=== PATIENT | female | born 1955 | race Caucasian/White ===

== ENCOUNTER 2025-05-10 14:52 | Inpatient (IN) | payer MEDICARE ==
[2025-05-10] VITALS (7 sets, daily range): BP systolic 69–129; BP diastolic 52–66
[~2025-05-10] VITALS: Ht 162.6 cm; Wt 78.3 kg
[2025-05-10] MEDS ORDERED: SODIUM CHLORIDE 0.9% 1,000 ML IV ONE (15:15)
[2025-05-10 15:18] LABS: BASOPHILS 0.5 % (0.1-1.2); EOSINOPHILS 4.7 % (0.7-5.8); LYMPHOCYTES 37.7 % (19.3-51.7); MCH 28.7 PG (25.6-32.2); MCHC 34.8 g/dL (32.2-35.5); MCV 82.5 fL (79.4-94.8); MONOCYTES 5.5 % (4.7-12.5); NEUTROPHILS 51.3 % (34.0-71.1); RBC 4.85 M/uL (3.93-5.22)
[2025-05-10 15:35] LABS: ALT (SGPT) 21.0 U/L (14-59); AST (SGOT) 19.0 U/L (15-37); GLOMERULAR FILTRATION RATE,EST 72.0 mL/min (>60); PROTEIN, TOTAL 6.4 g/dL (6.4-8.2); UREA NITROGEN 19.0 mg/dL (7-18)
[2025-05-10] MEDS ORDERED: MORPHINE SULFATE 4 MG/ML VIAL IV ONE (16:00)
[2025-05-10] MEDS ORDERED: CIPROFLOXACIN/DEXTROSE 400 MG/200 ML PIGGYBACK IV ONE (17:45)
[2025-05-10] MEDS ORDERED: HYDROmorphone HCL 1 MG/ML SYR IV ONE (17:45)
[2025-05-10] MEDS ORDERED: PROCHLORPERAZINE EDISYLATE 10 MG/2 ML VIAL IV PRN (18:30)
[2025-05-10] MEDS ORDERED: HYDROmorphone HCL 1 MG/ML SYR IV PRN (18:30)
[2025-05-10] MEDS ORDERED: NEURONTIN300 MG PO (19:56)
--- NOTE | 2025-05-10 20:26 | NUR ---
WE ARE ADMITTING PT TO THE FLOOR AND DOING ASSESSMENT KEL DURANT RN CALLS DR. REA TO REPORT PT'S TEMPERATURE OF 93.3 RECTAL. PT GIVEN 10MG COMPAZINE AND 1MG DILAUDID FOR NAUSEA AND PAIN 10/[address] REA ORDERS PT BE MOVED TO CCU. MISSAEL ADAN AND I MOVED PT TO CCU AND REPORTED OFF TO MISSAEL ROBERTS.
[2025-05-10 20:40] LABS: BLOOD/HGB, URINE NEGATIVE (Negative); KETONE, URINE SMALL (Negative); LEUK ESTERASE, URINE NEGATIVE (negative); NITRITE, URINE NEGATIVE (negative)
--- NOTE | 2025-05-10 20:45 | NUR ---
PATIENT ARRIVED IN THE BED FROM [facility]. REPORT RECIEVED. PATIENT IS AAOX4. REPORTS PAIN 8/10; RECENTLY RECIEVED PRN DILAUDID AND COMPAZINE. PATIENT'S BP AND HR NORMAL. IV ABX INFUSING; IV SITE IN LEFT HAND WNL. BRYSON PLACED FOR TEMP MONTIORING. INITAL TEMP IS 91.F. BEAR HUGGER WARMING BLANKET APPLIED. PATIENT REPORTS NOT FEELING COLD BUT IS COOL TO TOUCH. OTHER VS ARE WNL. PATIENT ABLE TO PROVIDE HISTORY. FREINDS AT BEDSIDE.
[2025-05-10 20:54] LABS: AMPHETAMINES, URINE POSITIVE (NEGATIVE); BARBITURATES, URINE NEGATIVE (NEGATIVE); BENZODIAZEPINE, URINE NEGATIVE (NEGATIVE); CANNABINOID, URINE NEGATIVE (NEGATIVE); COCAINE, URINE NEGATIVE (NEGATIVE); ECSTASY, URINE NEGATIVE (NEGATIVE); FENTANYL, URINE POSITIVE (NEGATIVE); METHADONE, URINE NEGATIVE (NEGATIVE); OPIATES, URINE POSITIVE (NEGATIVE); OXYCODONE, URINE NEGATIVE (NEGATIVE); PHENCYCLIDINE, URINE NEGATIVE (NEGATIVE)
--- NOTE | 2025-05-10 21:30 | NUR ---
PATIENT REPORTS ONGOING CRAMPING AND WANTS TO GO TO THE BATHROOM. ASSITED PATIENT UP OUT OF BED. PATIENT STEADY ON HER FEET AND AMBULATES WITH CORD ASSIST ONLY. PATIENT SAT FOR A WHILE BUT DID NOT HAVE A BM. ASSISTED PATIENT BACK TO BED. BEAR HUGGER BACK IN PLACE.
--- NOTE | 2025-05-10 22:20 | NUR ---
PT CALL LIGHT ON, REQUESTING TO HAVE A BM. ASSISTED PT TO BSC SBA. UPON SITTING DOWN PT C/O FEELING "DIZZY". WITH IN A FEW SECONDS PT SLUMPED OVER ON TO LAP. PT QUICKLY SAT UP AND OPENED EYES. SR ON TELE IN THE 90'S. ASSISTED PT BACK TO BED AND CHECKED BP, 69/52 (58). ALEJANDRA CANAS AND DR. REA AT BEDSIDE. PT C/O FEELING DIZZY BUT ALERT AND RESPONDS TO QUESTIONS APPROPRIATELY.
[2025-05-10] MEDS ORDERED: LACTATED RINGER'S 1,000 ML IV SCH (22:45)
--- NOTE | 2025-05-10 22:45 | NUR ---
PATIENT RECEIVING BOLUS. MD REVIEWED PLAN OF CARE AND DISCUSSED LAB FINDINGS WITH PATIENT. PATIENT'S BP IMPROVED UPON RETURNING TO BED AND PATIENT REPORTS FEELING SLIGHTLY DIZZY BUT IS AAOX4. FRIENDS AT BEDSIDE. BEAR HUGGER IN PLACE. ENCOURAGED PATIENT TO REST IN THE BED; SHE IS FREQUENTLY TURNING SIDE TO SIDE AND TRYING TO GET COMFORTABLE.
[2025-05-11] VITALS (29 sets, daily range): BP systolic 66–127; BP diastolic 48–96
--- NOTE | 2025-05-11 00:30 | NUR ---
PATIENT REPORTS BACK PAIN AND ABD PAIN. STAFF HAS ASSISTED PATIENT IN REPOSITIONING MANY TIMES TO IMPROVE COMFORT. PATIENT PROVIDED PRN MEDS FOR PAIN AND MILD NAUSEA. PATIENT ASSISTED TO LAY ON HER SIDE AND PILLOWS PLACED FOR COMFORT. PATIENT VS STABLE. BRYSON TEMP IMPROVING; CURRENTLY 98.6 F. BEAR HUGGER WARMING BLANKET REMAINS IN PLACE. PATIENT TOLERAITNG ROOM AIR. IV FLUIDS PER ORDER. SITE WNL. CALL LIGHT IN REACH.
[2025-05-11] MEDS ORDERED: LACTATED RINGER'S 1,000 ML IV ONE ×5 (01:15→18:00)
--- NOTE | 2025-05-11 01:40 | NUR ---
NOTIFIED DR. REA OF PATIENT'S HYPOTENSION AND TACHYCARDIA. DISCUSSION OF FLUID BALANCE WAS HAD. PATIENT'S IV FLUIDS INCREASED. HOLDING PAIN MEDS FOR NOW. PLAN TO BOLUS IF PATIENT'S BP DOES NOT IMPROVE WITHIN AN HOUR. CURRENT MAP > 60. PATIENT DENIES FEELING DIZZY OR LIGHTHEADED AND IS AAOX4.
--- NOTE | 2025-05-11 02:28 | NUR ---
patient sitting on bedpan. patient wakes and answers orientation questions but is frequently drowsy and restless at random intervals. patient will move around in bed impulsively without any concern for lines of tubes; including iv tubing and johnston cath. attempts made to reduce cords and organize to reduce patient's risk of pulling one. this behavior does not appear intenstional. hr is elevated at 115-120; sinus tach. BP has improved to systolics in the high 90's and maps >65. see vital sign trends. johnston temp is 100.0 f without bear hugger in place.
--- NOTE | 2025-05-11 02:40 | NUR ---
PATIENT OFF BEDPAN. NO BM. PATIENT IS DROWSY BUT FOLLOWS COMMANDS. VS STABLE. IV FLUIDS PER ORDER. SITE WNL.
--- NOTE | 2025-05-11 04:00 | NUR ---
PATIENT SET OFF BED ALARM TRYING TO SIT TO EDGE OF BED. PATIENT DISORIENTED UPON WAKING. EASILY REORIENTED. FOLLOWS INSTRUCTIONS TO GET BACK INTO BED. REPORTS FEELING WELL. BP CUFF REPOSITIONED. CORDS UNTANGLED. PATIENT IS RESTLESS WHILE SLEEPING; ROLLING BACK AND FORTH FREQUENTLY. HR REMAINS ELEVATED EVEN AT REST; 110-120'S SINUS TACH. BP WNL. BRYSON TEMP 100.6 F IV FLUIDS CONTINUE PER ORDER; SITE WNL.
--- NOTE | 2025-05-11 05:04 | NUR ---
UPDATE PROVIDED TO PATIENT'S SISTER RUTH WITH VERBAL CONSENT FROM PATIENT.
[2025-05-11 05:20] LABS: BASOPHILS 0.2 % (0.1-1.2); EOSINOPHILS 0 % (0.7-5.8); LYMPHOCYTES 2.7 % (19.3-51.7); MCH 28.6 PG (25.6-32.2); MCHC 34.0 g/dL (32.2-35.5); MCV 84.3 fL (79.4-94.8); MONOCYTES 5.8 % (4.7-12.5); NEUTROPHILS 90.9 % (34.0-71.1); RBC 5.62 M/uL (3.93-5.22)
[2025-05-11 05:39] LABS: ALT (SGPT) 20.0 U/L (14-59); AST (SGOT) 19.0 U/L (15-37); GLOMERULAR FILTRATION RATE,EST 52.0 mL/min (>60); PHOSPHORUS, INORGANIC 5.2 mg/dL (2.5-4.9); PROTEIN, TOTAL 5.5 g/dL (6.4-8.2); UREA NITROGEN 22.0 mg/dL (7-18)
[2025-05-11] MEDS ORDERED: CIPROFLOXACIN/DEXTROSE 400 MG/200 ML PIGGYBACK IV SCH (06:00)
--- NOTE | 2025-05-11 07:30 | NUR ---
REPORT RECEIVED FROM ALEJANDRA CANAS. PT IS RESTING IN BED WITH EYES CLOSED, RESP EVEN AND UNLABORED, RR 24, PT ON /, HR 90'S SINUS RHYTHM. DAUGHTER IS IN ROOM.
--- NOTE | 2025-05-11 08:33 | NUR ---
AM ASSESSMENT COMPLETE - PT RESTING IN BED WITH EYES CLOSED BUT ALERT AND RESPONDS TO QUESTIONS APPROPRIATLY. FIDGETY IN BED AT TIMES. STATES PAIN IS TRANSIENT CRAMPING ACROSS LOWER ABD. DENIES NAUSEA OR CHEST PAIN OR SOB. SWAB PROVIDED PT STATES SHE IS THIRSTY - REVIEWED CURRENT PLAN OF CARE AND NPO STATUS. IV SITE PATENT X2, IVF AT 200ML/HR. TEMP BRYSON DRAINING CONC URINE, TEMP 99.6. SINUS TACH ON MONITOR 105. CALL LIGHT IN REACH.
--- NOTE | 2025-05-11 09:20 | NUR ---
PT USES CALL LIGHT TO STATE SHE IS UNCOMFORTABLE IN BED - ASSISTED WITH REPOSISTIONING WITH PILLOWS AND HEAT PACK FOR BACK PROVIDED. PT RESTLESS, FLOPPY IN BED AND DIFFICULT TO CONSOLE. STATES NAUSEA IS BETTER AFTER ZOFRAN. CONTINUES TO STATE THAT SHE NEEDS WATER, SWAB PROVIDED.
--- NOTE | 2025-05-11 10:04 | NUR ---
1 L BOLUS STARTED PER EMAR. PT COMPLAINING OF 7/10 PAIN, PRN ADMINISTERED SMALLER DOSE TO TITRATE UP. PT RESTLESS IN BED. BP 88/60, HR 103. URINE OUTPUT 40ML FOR LAST 3 HOURS. FRIENDS AT BEDSIDE UPDATED ON CURRENT STATUS AND PLAN OF CARE.
--- NOTE | 2025-05-11 11:24 | NUR ---
MD NOTIFIED OF REPEAT LACTIC AT 4.1, BP TRENDING DOWN. URINE OUTPUT LESS THAN QUANTITY SUFFICIENT PER HOUR. CORE TEMP 99.1, PT COOL TO TOUCH, WARM BLANKETS APPLIED. BOLUS CONTINUES TO INFUSE.
--- NOTE | 2025-05-11 11:54 | NUR ---
BRYSON CATH TUBING CHANGED TO UROMETER, OUTPUT REMAINS MINIMAL PER HOUR. AWARE. BOLUS COMPLETE.
[2025-05-11] MEDS ORDERED: PHARMACY RENAL DOSE ADJUSTMENT 1 DOSE MISC PO SCH (12:00)
--- NOTE | 2025-05-11 12:12 | NUR ---
MD AND SURGEON IN ROOM TO ROUND - PT AWAKE AND CONVERSING BUT SOME CONFUSION OR DIFFICULTY FOLLOWING CONVERSATION. FRIENDS AT BEDSIDE, ALL QUESTIONS ANSWERED.
--- NOTE | 2025-05-11 12:27 | NUR ---
SISTER RUTH UPDATED ON TELEPHONE REGARDING PT STATUS WITH PT PERMISSION. ALL QUESTIONS ANSWERED.
[2025-05-11] MEDS ORDERED: NOREPINEPHRINE BITARTRATE 250 ML IV SCH (12:30)
--- NOTE | 2025-05-11 13:08 | NUR ---
BACK FROM CT - PT RESTING QUIETLY IN BED.
--- NOTE | 2025-05-11 14:23 | NUR ---
PT RESTING IN BED WITH EYES CLOSED FLAT ON BACK - STATES PAIN IS STILL MANAGABLE LEVEL, ATTEMPTS TO REPOSISTION BUT NOT COMFORTABLE. MD AT BEDSIDE, AWARE OF INCREASE IN URINE OUT PUT LAST HOUR. SECOND 1L BOLUS HALF THROUGH. BP RESPONSIVE.
[2025-05-11] MEDS ORDERED: SEVOFLURANE 250 ML BTL INH ONE (14:28)
--- NOTE | 2025-05-11 14:49 | NUR ---
PT MORE ALERT NOW, SITTING UP IN BED - REPORTS DIZZINESS WITH THIS. CONVERSATION MORE CLEAR THAN PRIOR. SECOND BOLUS COMPLETE.
--- NOTE | 2025-05-11 15:16 | NUR ---
LACTIC DRAWN FROM MIDLINE WITHOUT DIFFICULTY. PT INCREASINGLY RESTLESS IN BED COMPLAINING OF ABDOMINAL PAIN. BP 90/61 AT THIS TIME, PREVIOUS DOSES OF DILAUDID NOTED TO HAVE HYPOTENSIVE EFFECT. HOLDING AT THIS TIME.
--- NOTE | 2025-05-11 15:47 | NUR ---
NOTIFIED OF REPEAT LACTIC AT 4.6. PTS PAIN HAS INCREAED IN LOWER ABD, TRANSIENT CRAMPING. BP LOWERING WITH INCREASED RR AND HR NOW 110.
[2025-05-11] MEDS ORDERED: BETAMETHASONE D15 G2 TOP (16:10)
[2025-05-11] MEDS ORDERED: ZOLPIDEM TARTRAT5 MG PO (16:15)
[2025-05-11] MEDS ORDERED: ZEPBOUND12.5 MG/0. SUB-Q (16:16)
[2025-05-11] MEDS ORDERED: ALPRAZOLAM0.5 MG PO (16:16)
[2025-05-11] MEDS ORDERED: ZOLMITRIPTAN5 MG PO (16:20)
[2025-05-11] MEDS ORDERED: PHENTERMINE H37.5 M1 PO (16:21)
[2025-05-11 16:22] LABS: BASOPHILS 0.4 % (0.1-1.2); EOSINOPHILS 0.5 % (0.7-5.8); LYMPHOCYTES 6.9 % (19.3-51.7); MCH 28.7 PG (25.6-32.2); MCHC 33.9 g/dL (32.2-35.5); MCV 84.7 fL (79.4-94.8); MONOCYTES 4.8 % (4.7-12.5); NEUTROPHILS 87.0 % (34.0-71.1); RBC 5.68 M/uL (3.93-5.22)
[2025-05-11 16:34] LABS: INR 1.44 (0.80-1.30); PROTIME 16.6 Sec (11.2-14.2)
[2025-05-11] MEDS ORDERED: fentaNYL citrate 100 MCG/2 ML VIAL ONE (18:40)
[2025-05-11] MEDS ORDERED: MIDAZOLAM HCL 2 MG/2 ML VIAL ONE (18:40)
[2025-05-11] MEDS ORDERED: KETAMINE in NS 50 MG/5 ML SYR ONE (18:40)
[2025-05-11] MEDS ORDERED: MAGNESIUM SULFATE 1 GM/2 ML VIAL ONE ×2 (18:41→20:59)
[2025-05-11] MEDS ORDERED: DEXAMETHASONE SOD PHOS 4 MG/ML VIAL ONE ×2 (18:41→22:39)
[2025-05-11] MEDS ORDERED: ROCURONIUM BROMIDE 50 MG/5 ML SYR ONE ×2 (18:41→20:00)
[2025-05-11] MEDS ORDERED: LIDOCAINE HCL 2% 5 ML SDV ONE ×2 (18:41→20:59)
[2025-05-11] MEDS ORDERED: SODIUM CHLORIDE 0.9% 40 ML IV ONE ×2 (18:42→20:58)
[2025-05-11] MEDS ORDERED: ACETAMINOPHEN 1,000 MG/100 ML VIAL ONE (18:42)
[2025-05-11] MEDS ORDERED: PHENYLEPHRINE HCL 10 MG/ML VIAL ONE (19:44)
[2025-05-11] MEDS ORDERED: SODIUM CHLORIDE 0.9% 20 ML IV ONE (19:50)
[2025-05-11] MEDS ORDERED: VASOPRESSIN 20 UNITS/ML VIAL ONE (19:50)
--- NOTE | 2025-05-11 20:51 | NUR ---
PHONE CALL FROM LAB STATING PT GRAM STAIN CAME BACK NEGATIVE FOR ORGANISMS BUT HAS MODERATE WBC. PRIMARY RN NOTIFIED.
[2025-05-11] MEDS ORDERED: ALBUMIN HUMAN 25% 100 ML BTL ONE (21:22)
[2025-05-11] MEDS ORDERED: ALBUMIN HUMAN 25% 100 ML BTL IV ONE (21:30)
[2025-05-11] MEDS ORDERED: SODIUM CHLORIDE 0.9% 60 ML IV ONE (22:39)
[2025-05-11] MEDS ORDERED: Ropivacaine HCl 0.5% 30 ML VIAL ONE (22:39)
[2025-05-11] MEDS ORDERED: KETOROLAC TROMETHAMINE 30 MG/ML VIAL IV PRN (22:45)
[2025-05-11] MEDS ORDERED: fentaNYL citrate 50 MCG/ML SDV IV PRN (22:45)
[2025-05-11] MEDS ORDERED: NALOXONE HCL 0.4 MG SYR IV PRN (22:45)
[2025-05-11] MEDS ORDERED: IBLOOD GLUCOSE TEST STRIP 1 EA TEST VI PRN (22:45)
[2025-05-11] MEDS ORDERED: SUGAMMADEX SODIUM 200 MG/2 ML ML ONE (22:50)
[2025-05-12] VITALS (24 sets, daily range): BP systolic 99–141; BP diastolic 51–88
[2025-05-12] MEDS ORDERED: KETOROLAC TROMETHAMINE 30 MG/ML VIAL IV PRN (01:00)
[2025-05-12] MEDS ORDERED: ACETAMINOPHEN 1,000 MG/100 ML VIAL IV PRN (01:00)
--- NOTE | 2025-05-12 01:00 | NUR ---
TOOK FROM ALEJANDRA CANAS REPORT RECEIVED ALL QUESTIONS ANSWERED. PT SLEEPING, BUT WILL OPEN EYES AND LOOK ABOUT THE ROOM. EXPLAINED WHERE AND WHAT HAD HAPPENED AND THEN SHE GOES BACK TO SLEEP. NERI LEON REMAINS INPLACE DUE TO BRYSON TEMP 95.6 TO 95.8. WARM BLANKETS AND COVERS ARE ALSO COVERING PT. SCD'S INPLACE AND BRYSON DRAINING RYLAN IN COLOR URINE.
[2025-05-12 01:09] LABS: MCH 29.0 PG (25.6-32.2); MCHC 34.3 g/dL (32.2-35.5); MCV 84.5 fL (79.4-94.8); RBC 4.38 M/uL (3.93-5.22)
[2025-05-12] MEDS ORDERED: NOREPINEPHRINE BITARTRATE 250 ML IV SCH (01:15)
[2025-05-12 01:26] LABS: ALT (SGPT) 13.0 U/L (14-59); AST (SGOT) 13.0 U/L (15-37); GLOMERULAR FILTRATION RATE,EST 53.0 mL/min (>60); PROTEIN, TOTAL 4.0 g/dL (6.4-8.2); UREA NITROGEN 27.0 mg/dL (7-18)
[2025-05-12 01:46] LABS: BANDS, MANUAL DIFF 20; LYMPHOCYTES, MANUAL DIFF 10; MONOCYTES, MANUAL DIFF 4; NEUTROPHILS, MANUAL DIFF 66
--- NOTE | 2025-05-12 03:00 | NUR ---
PT AWKENS WHEN SPOKEN TO, DOES NOT TRY TO TALK LOOKS ABOUT THE ROOM AND GOES BACK TO SLEEP. STATED EARLY BEAR HUNGER, WARM BLANKETS.
--- NOTE | 2025-05-12 03:11 | NUR ---
G-TUBE PLACE TO BRYSON LEG BAG, DRAINING CLEAR IN COLOR AT THIS TIME, PT MEDICATED FOR PAIN 0.5 DILADIUD. SHE WAS ASKING QUESTION AND WANTING ME TO CALL HER SISTER, BUT EXPLAINED THAT IT WAS 0300 IN THE MORNING AND THAT WOULD BE VERY EARLY TO BE CALLING PEOPLE. SHE RELAXED AND THEN SHE WANTED TO SEE WHAT HER DRAINS AND WHAT SHE LOOKED LIKE. SO WITH A MIRROR LIQUID HYDROGEN PLANT OPERATOR SHOWED HER STOMACH. PT ALSO WANTED THE OXY MASK OFF SO REMOVED IT AND SPO2 92% ON ROOM AIR.
[2025-05-12 05:30] LABS: BASOPHILS 0.3 % (0.1-1.2); EOSINOPHILS 0.9 % (0.7-5.8); LYMPHOCYTES 7.5 % (19.3-51.7); MCH 28.9 PG (25.6-32.2); MCHC 34.5 g/dL (32.2-35.5); MCV 83.7 fL (79.4-94.8); MONOCYTES 3.9 % (4.7-12.5); NEUTROPHILS 86.9 % (34.0-71.1); RBC 4.54 M/uL (3.93-5.22)
--- NOTE | 2025-05-12 05:31 | NUR ---
obtained lab sample wasted 5 and sent 10mls. talked with sister this am gave updates. But sister Priti would like Dr to call when he is into see PT. Pt is awake and warm at this time temp 98.6 bear huger removed, pt wants to get up into a wc at this time. Explained to her that she is still waking up from surgery and it is not safe for her to be up yet. repositioned in bed at this time.
[2025-05-12 05:53] LABS: ALT (SGPT) 15.0 U/L (14-59); AST (SGOT) 14.0 U/L (15-37); GLOMERULAR FILTRATION RATE,EST 64.0 mL/min (>60); PROTEIN, TOTAL 4.4 g/dL (6.4-8.2); UREA NITROGEN 26.0 mg/dL (7-18)
[2025-05-12] MEDS ORDERED: MEROPENEM 1,000 MG in SODIUM CHLORIDE 0.9% 100 ML IV SCH (06:00)
--- NOTE | 2025-05-12 07:04 | NUR ---
PT ANGERY AND WANTS HER CELL PHONE, WANTS US TO CALL THEM NOW. STAFF CALLED THE NUMBER ON THE BOARD.
--- NOTE | 2025-05-12 07:15 | NUR ---
PT CONTIOUES TO MAGNO AT STAFF AND DEMANDING US TO GIVE HER HER PERSONAL CELL PHONE. REDIRECTED THAT STAFF DID NOT HAVE HER PHONE. CALLED NUMBERS ON THE BOARD, BUT PT CONTIOUES TO MAGNO AT STAFF. SHE PULLED OFF HER GORWN, AND SPO2 MONITOR OFF. TRYED TO REDIRECE HER, BUT SHE DID NOT RESPONED TO STORAGE BATTERY TESTER. FAMILY AND FREINDS CALLED AND TALKED WITH PT AND SHE CONTIOUED TO MAGNO THAT SHE WANTS OUT OF HERE. JUST LET ME GET OUT OF HER AND GIVE ME A DRINK OF WATER.
--- NOTE | 2025-05-12 07:45 | NUR ---
PT LAYING IN BED AWAKE AND ORIENTED SLAMMING HANDS AND CALL LIGHT ON BED YELLING OUT DEMANDS FOR WATER AND HER CELL PHONE. RN IN ROOM ATTEMPTING TO EDUCATE PT ON NPO STATUS, POST OP TEACHING. PT UNINTERESTED AND CONTINUES TO DEMAND TO LEAVE AND ATTEMPTING TO EXIT BED. PT HAS TAKEN GOWN OFF AND IS NAKED IN BED, STATES SHE WILL PUT HER GOWN BACK ON WHEN SHE CAN HAVE WATER. BED ALARM ON, CURTAIN OPEN FOR DIRECT VISUALIZATION AT RN STATION FOR SAFETY.
--- NOTE | 2025-05-12 08:44 | NUR ---
DR. DEL CASTILLO IN ROOM ROUNDING - PT AND FRIENDS UPDATED ON POST OP STATUS - ALL QUESTIONS ANSWERED. PT PROVIDED ICE CHIPS PER VERBAL FROM DR. DEL CASTILLO.
--- NOTE | 2025-05-12 09:15 | NUR ---
ALERT AND ORIENTED IN BED, FRIENDS IN ROOM. PATIENT STATES SHE LIVES IN [place], DEMOGRAPHICS VERIFIED WITH PATIENT. WOULD LIKE FIRST SHIPMENT OF OSTOMY SUPPLIES TO BE SENT TO HER FRIENDS' HOUSE AT [address] [place], [id number]. CURRENTLY, SHE IS PLANNING TO RETURN TO [place] WITH FRIENDS WHILE SHE RECOVERS BEFORE SHE FLIES BACK TO HER HOME IN [place]. HAS NO DME AT [place] AND IS ABLE TO DRIVE AT [place], NO FINANCIAL CONCERNS. ORDERS LEFT AT CCU NURSE'S STATION FOR OSTOMY SUPPLIES FOR DR. DEL CASTILLO TO COMPLETE.
--- NOTE | 2025-05-12 09:50 | NUR ---
SPEECH THERPAY IN ROOM FOR COGNITIVE EVAL.
--- NOTE | 2025-05-12 11:30 | NUR ---
UR CLINICAL REVIEW: 2 MN FOR VERSALUS-PER IT ANALYST MEETS INPT FOR COLITIS WITH NEED FOR IV PAIN MANAGEMENT, MONITORIN AND SURGICAL CONSULT. MEDICARE INPT 05/10/25 @ 1824 ORDER MATCHES REG NO AUTH REQUIRED PER MEDICARE GUIDELINES. DISCHARGE TO HOME WHEN STABLE
--- NOTE | 2025-05-12 12:03 | NUR ---
PT RESTING IN BED ON CELL PHONE - ROOM LIGHTS OFF PER PT REQUEST. /10 PAIN IN NECK AT CENTRAL LINE SITE AND LOWER BACK - PRN ADMINISTERED. PT STATES THE PICTURE ON THE WALL IS OF 2 WITCHES, PT REORIENTED.
[2025-05-12] MEDS ORDERED: VITAMIN B-121000 MCG PO (12:09)
[2025-05-12] MEDS ORDERED: MULTI VITAMIN1 EACH PO (12:09)
--- NOTE | 2025-05-12 12:09 | NUR ---
MED REC COMPLETE
--- NOTE | 2025-05-12 12:45 | NUR ---
PT RESTING IN BED WITH EYES CLOSED. APPEARS TO BE SLEEPING - NO DISTRESS NOTED. WATER AND APPLE JUICE AT BEDSIDE PER PT REQUEST. CALL LIGHT IN REACH.
--- NOTE | 2025-05-12 13:10 | NUR ---
05/12/25 1310 Carlyn Bennett PT TAKEN DIRECTLY TO CCU, NO PACU TIME
--- NOTE | 2025-05-12 13:10 | NUR ---
VISITED DURING SPIRITUAL CARE ROUNDS. PT APPEARED TO BE SLEEPING. DID NOT DISTURB. PROVIDED PRAYER.
--- NOTE | 2025-05-12 13:45 | NUR ---
PT RESTING IN BED WITH EYES CLOSED - EASILY AWAKES WITH VOICE. OSTOMY TISSUE RED AND WELL GRANULATED. G TUBE IN PLACE DRAINING CLEAR FLUID WITH SOME MUCOID SEDIMENT. VICTOR M PATENT WITH APPROPRIATE OUTPUT. PRN PAIN MEDICATION ADMINISTERED PER REQUEST AND ICE PACK PROVIDED FOR NECK. VS STABLE.
--- NOTE | 2025-05-12 14:39 | NUR ---
PT UP TO CHAIR WITH OT NEEDING 2 PA FOR LINE MANAGMENT. CALL LIGHT IN REACH.
--- NOTE | 2025-05-12 21:00 | NUR ---
pt awake back in bed and was c/o something wet. it was from her g-tube that had came unpluged from drainage bag. complete line change and retaped with pink tape at this time. Pt apologize for this am behaviors. Explained that she is good. filey contioues to drain QS urine and mable put out ss fluid. Clostomy has air bubble noted, no stool as of it. Completed all care so that pt can get some sleep.
[2025-05-13] VITALS (13 sets, daily range): BP systolic 119–145; BP diastolic 59–75
--- NOTE | 2025-05-13 00:43 | NUR ---
PT AWAKE AND OFFERED PAIN MEDICATION FOR ABD PAIN. PT ACCEPTED AND WAS MEDICATED WITH 0.5MG DILAUDID IVP. G-TUBE DRAINED AND VICTOR M AND CLOSTOMY DID NOT HAVE ANY DRAINAGE AT THIS TIME. PT WANT'S THE ROOM DARKER BUT UNABLE TO PROVIDE THIS EVEN WHEN ALL THE LIGHTS ARE OFF AND CURTINS CLOSED.
--- NOTE | 2025-05-13 01:33 | NUR ---
In with pt in response to call light. Pt requests to look through her "green bag" of personal belongings so she can find her deck of cards. She looked through it and discovered her cards were not in there, but commented that she is tired but can't sleep and she thinks it's the lighting outside her room that is keeping her awake. I brought the pt a quiet pack and assisted her with opening the sleep mask and ear plugs, which she used. Pt's iced water refreshed. Personal belongings and call light in reach. Bedside tables in reach. Pt denies further needs at this time.
--- NOTE | 2025-05-13 01:49 | NUR ---
In with pt in response to call light because she couldn't find her sleep mask (it was on her forehead). Pt reports her pain is a 10 out of 10 in her low back and a 5 in her abdomen. Advised pt that her next dose of dilaudid is due a little after 0200 hours and provided the pt with a hot pack that I placed on her low back after wrapping it in a towel. RN Susan notified and I will notify pt's primary RN when she returns from break. Call light in reach.
--- NOTE | 2025-05-13 02:00 | NUR ---
PT AWAKE AND C/O BACK AND ABD PAIN. MEDICATED WITH 0.5MG DILAUDID AND 30MG TORDAL.
[2025-05-13 05:43] LABS: BASOPHILS 0.3 % (0.1-1.2); EOSINOPHILS 0 % (0.7-5.8); LYMPHOCYTES 7.0 % (19.3-51.7); MCH 28.8 PG (25.6-32.2); MCHC 34.4 g/dL (32.2-35.5); MCV 83.8 fL (79.4-94.8); MONOCYTES 5.6 % (4.7-12.5); NEUTROPHILS 86.5 % (34.0-71.1); RBC 3.71 M/uL (3.93-5.22)
--- NOTE | 2025-05-13 05:58 | NUR ---
i&o's completed and pt medicated for pain. Pt has been very pleasent this shift. No outbust noted.
[2025-05-13 06:02] LABS: ALT (SGPT) 21.0 U/L (14-59); AST (SGOT) 27.0 U/L (15-37); GLOMERULAR FILTRATION RATE,EST 66.0 mL/min (>60); PROTEIN, TOTAL 4.6 g/dL (6.4-8.2); UREA NITROGEN 34.0 mg/dL (7-18)
--- NOTE | 2025-05-13 08:44 | NUR ---
PATIENT IS SITTING IN CHAIR WITH BLE ON FLOOR. PATIENT AMBULATED FROM BED TO CHAIR WITH FWW AND SBA. PATIENT DENIED SOB, DIZZINESS, OR FEELING LIGHTHEADED. THERE WAS A LEAK IN THE G-TUBE DRAINAGE, KAITY CANAS CHANGED THE TUBING. WIPE DOWN, GOWN AND LINEN CHANGE PROVIDED. PATIENT HAS TELEMETRY, VICTOR M TUBE, G TUBE AND CENTRAL LINE. LR INFUSING AT 100ML/HR. PATIENT DENIES FURTHER NEEDS.
--- NOTE | 2025-05-13 10:38 | NUR ---
DR. DEL CASTILLO IN ROOM TO SEE PATIENT AND DISCUSS PLAN OF CARE. PATIENT WILL LIKLEY TRANSFER TO MED/SURG TODAY.
--- NOTE | 2025-05-13 10:41 | NUR ---
PATIENT IS STILL PLANNING TO RETURN TO HOME WITH FRIENDS IN [place]. DISCUSSED OSTOMY SUPPLIES BEING SHIPPED TO HER FRIEND'S HOUSE WHILE SHE HEALS. INFORMED HER DME COMPANY INFORMATION WILL BE PLACED ON HER DISCHARGE INSTRUCTIONS. LIKELY WILL NEED HOME HEALTH NURSE TO ASSIST WITH OSTOMY EDUCATION AT DISCHARGE. WILL REVIEW HOME HEALTH AGENIES IN AREA OF FRIEND'S HOME.
--- NOTE | 2025-05-13 12:26 | NUR ---
PATIENT TRANSFERRED TO ROOM 112 WITHOUT TELEMETRY AND ALL PERSONAL BELONGINGS, WHICH INCLUDED HER BLACK PERSONAL PILL BOX (WHICH I TRIED TO LOCK IN THE CLEAR LOCK BOX IN THE ROOM THIS AM AND PATIENT WAS NOT HAPPY WITH THIS SHE STATED THEY WOULD BE TAKEN BY HER FRIENDS), WHITE CASE OF EAR BUDS, WALLET, CLOTHING, AND HER SUITCASE AND BACKPACK THAT WAS BROUGHT IN BY HER FRIENDS TODAY. PATIENT WAS VERY CONCERNED ABOUT HER PERSONAL BELONGINGS AND STATES HER [place] NOREEN WAS GOING TO TAKE HER PILLS, HER WALLET, AND HER SILVER COLORED EARRINGS HOME. PT DID WANT HER EAR BUDS TO STAY IN HER ROOM AND THESE WERE NEXT TO HER MILLER BEHIND HER BED. REPORT GIVEN TO MISSAEL OROZCO.
--- NOTE | 2025-05-13 12:33 | NUR ---
PT ARRIVES TO [facility] VISITORS X3 ARE PRESENT. TRANSFERS TO THE CHAIR ADELAIDE JAQUEZ. PT AGREES SHE IS COMFORTABLE ORIENTED TO ROOM AND CONTROLS. CLEAR FLUIDS PROVIDED.
--- NOTE | 2025-05-13 14:07 | NUR ---
CLEAR LIQUIDS WELL TOLERATED. PT CONTINUES UP IN THE CHAIR VISITOR PRESENT.
[2025-05-13 14:37] LABS: BASOPHILS 0.2 % (0.1-1.2); EOSINOPHILS 0 % (0.7-5.8); LYMPHOCYTES 7.9 % (19.3-51.7); MCH 28.5 PG (25.6-32.2); MCHC 34.0 g/dL (32.2-35.5); MCV 83.8 fL (79.4-94.8); MONOCYTES 2.9 % (4.7-12.5); NEUTROPHILS 88.7 % (34.0-71.1); RBC 3.96 M/uL (3.93-5.22)
--- NOTE | 2025-05-13 14:50 | NUR ---
FACESHEET, ORDERS, H&P, OP NOTE AND PROG NOTES AND LETTER WITH SHIPPING ADDRESS TO FRIEND'S HOME IN [place] FAXED TO [facility]
--- NOTE | 2025-05-13 14:53 | NUR ---
PT UP WITH P/T TO AMBULATE
--- NOTE | 2025-05-13 16:23 | NUR ---
PT AGREES SHE FEELS GOOD ABOUT HER WALK WITH P/T SHE CONTINUES UP IN THE CHAIR AT THIS TIME. REMINDED HER TO USE CALL LIGHT FOR GETTING UP DUE TO LINE MANAGEMENT NEED, SHE VERBALIZES UNDERSTANDING. AGREES SHE IS COMFORTABLE.
--- NOTE | 2025-05-13 18:27 | NUR ---
PT SETTLES INTO BED, STATES SHE WANTS TO GO TO SLEEP EARLY, THAT SHE DIDN'T SLEEP WELL. C/O SOME DISCOMFORT IN HER ABDOMEN OFFERED TYLENOL OR DILAUDID PT CHOOSES DILAUDID. NEEDED ITEMS IN REACH
--- NOTE | 2025-05-13 18:47 | NUR ---
IV FLAGYL IS COMPLETE. WHITE PORT FOR RIGHT IJ IS FLUSHED WITH 10ML NS, CLAMPED, GREEN CAP PLACED. PATIENT RATES ABD PAIN 6/10 AT THIS TIME, NO OTHER NEEDS.
--- NOTE | 2025-05-13 19:11 | NUR ---
REPORT RECEIVED FROM CELIO CANAS. PATIENT IN BED WITH HOB RAISED, EYES OPEN, CHEST RISE EVEN AND UNLABORED. IV FLUID INFUSING WITHOUT DIFFICULTY. CALL LIGHT AND PERSONAL BELONGINGS IN REACH OF PATIENT.
--- NOTE | 2025-05-13 20:00 | NUR ---
PATIENT IN BED WITH HOB RAISED, EYES OPEN, CHEST RISE EVEN AND UNLABORED. ASSESMENT AND VITAL SIGNS COMPLETED. PATIENT DENIES CONCERNS AT THIS TIME.
--- NOTE | 2025-05-13 21:26 | NUR ---
PATIENT IN BED WITH HOB RAISED, EYES OPEN, CHEST RISE EVEN AND UNLABORED. ASSESSMENT, I AND O, AND VITAL SIGNS COMPLETED. CALL LIGHT AND PERSONAL BELONGINGS IN REACH OF PATIENT. IV FLUID INFUSING WITHOUT DIFFICULTY. VICTOR M DRAIN DRESSING CHNAGED IT WAS SATURATED WITH CLEAR DRAINAGE, PATIENT TOLERATED WELL. G-TUBE FLUSHED. PATIENT DENIES CONCERNS AT THIS TIME.
--- NOTE | 2025-05-13 21:38 | NUR ---
PT C/O PAIN 04/27 TO ABDOMEN, PRN MEDS GIVEN, IV ABX STARTED - SEE NOV. PT RESTING IN BED, REQUESTING LIGHTS OFF. DENIES ANY OTHER NEEDS. CALL LIGHT WITHIN REACH AT THIS TIME.
--- NOTE | 2025-05-13 21:51 | NUR ---
PT CALL LIGHT ON AGAIN, PT REQUESTING BATHROOM. SBA W/ FWW TO BATHROOM, VOIDED 200ML. BACK TO BED, IVF AND IV ABX INFUSING. ALL PT CARE NEEDS MET, CALL LIGHT WITHIN REACH.
[2025-05-14] VITALS (10 sets, daily range): BP systolic 134–137; BP diastolic 61–69
--- NOTE | 2025-05-14 | NUR ---
PATIENT IN BED WITH HOB RAISED, EYES OPEN, CHEST RISE EVEN AND UNLABORED. PATIENT REPORTS 8/10 PAIN AND REQUESTS PRN PAIN MEDICATION. FLUIDS REMOVED FROM BEDSIDE, PATIENT EDUCATED ON NPO STATUS. CALL LIGHT AND PERSONAL BELONGINGS IN REACH OF PATIENT. IV FLUID INFUSING WITHOUT DIFFICULTY. MISSAEL COMER IN ROOM WITH PATIENT.
--- NOTE | 2025-05-14 00:31 | NUR ---
PATIENT IN BED WITH HOB RASIED, EYES OPEN, CHEST RISE EVEN AND UNLABORED. CALL LIGHT AND PERSONAL BELONGINGS IN REACH OF PATIENT. IV FLUID INFUSING WITHOUT DIFFICULTY. PATIENT REFUSES USE OF SCDS AT THIS TIME.
--- NOTE | 2025-05-14 00:43 | NUR ---
PATIENT CALLED. PATIENT STATED WANTING TO BE UP IN THE CHAIR FPR A LITTLE BIT. CALL LIGHT AND SIDE TABLE WITHIN REACH.
--- NOTE | 2025-05-14 00:58 | NUR ---
CALL LIGHT ANSWERED. pt COMPLAINS OF 9/10 ABDOMINAL AND BACK PAIN. PRN PAIN MEDICATION ADMINISTERED. SBA WITH FWW FROM CHAIR TO BED. CALL LIGHT AND PERSONAL SUPPLIES IN REACH.
--- NOTE | 2025-05-14 02:00 | NUR ---
PATIENT IN BED WITH HOB RAISED, EYES CLOSED, CHEST RISE EVEN AND UNLABORED. IV FLUID INFUSING WITHOUT DIFFICULTY. CALL LIGHT AND PERSONAL BELONGINGS IN REACH OF PATIENT. NO APPARENT NEEDS NOTED AT THIS TIME.
--- NOTE | 2025-05-14 02:46 | NUR ---
PATIENT IN BED WITH HOB RAISED, EYES OPEN, CHEST RISE EVEN AND UNLABORED. ASSISTED PATIENT TO BATHROOM AND BACK TO BED. SCHEDULED IV INFUSION STARTED AND INFUSING WITHOUT DIFFICULTY. PATIENT DENIES FURTHER CONCERNS AT THIS TIME. CALL LIGHT AND PERSONAL BELONGINGS IN REACH OF PATIENT.
--- NOTE | 2025-05-14 04:56 | NUR ---
PATIENT CALL LIGHT ANSWERED. PATIENT REPORTS SHE WOULD LIKE "FRESHENED UP". I SUPPLIED PATIENT WITH BATH WIPES, PATIENT VERBALIZED UNDERSTANIDNG AND IS USING THE WIPES. IV FLUID INFUSING WITHOUT DIFFICULTY. PATIENT DENIES FURTHER CONCERNS AT THIS TIME.
--- NOTE | 2025-05-14 05:00 | NUR ---
ASSISTED PATIENT DO FULL BED BATH AND NO RINSE HAIR SHAMPOO. FRESH FULL UPS, NEW SOCKS AND FRESH GOWN PROVIDED. PATIENT DID A.M. CARE.
[2025-05-14 06:04] LABS: BASOPHILS 0.1 % (0.1-1.2); EOSINOPHILS 0.3 % (0.7-5.8); LYMPHOCYTES 13.4 % (19.3-51.7); MCH 28.8 PG (25.6-32.2); MCHC 34.1 g/dL (32.2-35.5); MCV 84.4 fL (79.4-94.8); MONOCYTES 4.3 % (4.7-12.5); NEUTROPHILS 81.4 % (34.0-71.1); RBC 3.79 M/uL (3.93-5.22)
[2025-05-14 06:22] LABS: ALT (SGPT) 31.0 U/L (14-59); AST (SGOT) 34.0 U/L (15-37); GLOMERULAR FILTRATION RATE,EST 82.0 mL/min (>60); PROTEIN, TOTAL 5.0 g/dL (6.4-8.2); UREA NITROGEN 27.0 mg/dL (7-18)
--- NOTE | 2025-05-14 06:42 | NUR ---
PATIENT CALL LIGHT ANSWERED. PATIENT REPORTS PAIN AND REQUESTING PRN PAIN MEDICATION. PAIN MEDICATION ADMINISTERED AND LABS DRAWN. PATIENT DENIES FURTHER CONCERNS AT THIS TIME.
--- NOTE | 2025-05-14 07:20 | NUR ---
RECEIVED REPORT FROM MISSAEL COMER. PATIENT RESTING WITH EYES CLOSED, BREATHING UNLABORED. CALL LIGHT IN REACH.
[2025-05-14] MEDS ORDERED: POTASSIUM BICARBONATE/CIT AC 20 MEQ TABEF PO ONE (08:00)
--- NOTE | 2025-05-14 08:40 | NUR ---
PATIENT IN CHAIR, NEPHEW VISITING. TUBES DRAINED, CALL LIGHT IN REACH, CLEAR FLUIDS PROVIDED.
--- NOTE | 2025-05-14 15:00 | NUR ---
Attempted to speak with Jayshree about plan for dc tomorrow or Sat. Per pt she will not dc until the weekend. Friends will drive from [place] to transport her home. Pt would like to have Home Health. We discussed she will need to have a pcp and be seen prior to getting home health. I attempted to discuss she could call her friends and check if she can be seen by their PCP. There will be a delay as pt would like to help her with her ostomy. Supplies have been ordered from [employer] and will be sent to [place] where she will stay with friends until she returns to [facility]. Pt then stating she cannot speak with me now. Let her know I will return tomorrow. I texted Dr. Carbone to check when he plans to dc this pt. I was notified by the Charge, the friends would like to be notified the day before the pt discharges.
--- NOTE | 2025-05-14 15:20 | NUR ---
PATIENTS GTUBE DRAINED AND CLAMPED. PATIENT GIVEN TORADOL BEFORE REMOVING CENTRAL LINE D/T DISCOMFORT W/LAYING SUPINE IN BED. PATIENT EDUCATED ON LAYING FLAT FOR 30 MINUTES AFTER PROCEDURE. PATIENTS CENTRAL LINE REMOVED WITH STERILE TECHNIQUE. PATIENT REMAINED FLAT IN BED, CALL LIGHT IN REACH, NO NEEDS AT THIS TIME.
--- NOTE | 2025-05-14 15:33 | PATH ---
[facility] [address], [place] [address] Signed SPECIMEN(S): A SIGMOID, LEFT TRANSVERSE COLON SPECIMEN(S): B ADDITIONAL PROXIMAL MARGIN SPECIMEN(S): C APPENDIX SPECIMEN SOURCE: A. SIGMOID, LEFT TRANSVERSE COLON B. ADDITIONAL PROXIMAL MARGIN C. APPENDIX CLINICAL HISTORY: Sepsis due to colitis FINAL PATHOLOGIC DIAGNOSIS: A. Sigmoid, left transverse colon, partial colectomy: - Suppurative, acute colitis and pericolitis with patchy mucosal necrosis. - Portion of benign omentum. B. Additional proximal margin: - Segment of colon with focal patchy acute colitis and mucosal necrosis. C. Appendix, appendectomy: - Acute appendicitis. - Focal periappendicitis and serositis. DieterVR:madison MICROSCOPIC EXAMINATION: Histologic sections of all submitted blocks are examined by light microscopy. These findings, together with the gross examination, support the pathologic diagnosis. GROSS DESCRIPTION: A. The specimen, labeled and designated "Kay Mendes, sigmoid/left transverse colon stercoral colitis," is received in formalin and consists of a 74.3 cm in length by 9.9 cm in circumference previously open unoriented segment of colon the serosal surface is corona-pink and smooth. �Although the specimen is oriented there is moderate amount of omentum present at 1 margin likely representing the proximal/transverse margin. �The mucosa is corona-brown with diffuse green plaques and loss of mucosal folds. �There is a 7 cm in length area of uninvolved mucosa at the suspected distal end with no additional areas of uninvolved mucosa are present. �There are no discrete masses or polyps. �Wire Turning Machine Operator sections are submitted as follows: Cassette Summary: PATIENT NAME: SHILPA MENDES PATHOLOGY DATE OF : 59 REPORT #: [id number] PHYSICIAN: CAMERON PATHOLOGY PCP: OTHER PCP REPORT IS CONFIDENTIAL AND NOT TO BE RELEASED WITHOUT AUTHORIZATION [facility] [address], [place] [address] Signed (A1) suspected distal margin (A2) suspected proximal margin (A3) mucosa (A4) area of plaque uninvolved/edematous mucosa (A5) omentum B. The specimen, labeled and designated "Jerrod, S., additional proximal margin per requisition," is received in formalin and consists of a 6.8 cm in length by 7.1 cm in circumference unoriented segment of bowel with scant amount of attached pericolonic fat. The serosal surface is corona-pink and smooth. The mucosa is corona-brown with slight loss of mucosal folds. There are areas of green plaque that are greater than 1 cm away from both margins. There are no discrete masses or polyps. Wire Turning Machine Operator sections are submitted as follows: Cassette Summary: (B1) unoriented margin #1 (B2) unoriented margin #2 (B3) mucosa C. The specimen, labeled and designated "Jerrod, S., appendix per requisition," is received in formalin and consists of Specimen: Appendix with mesoappendix. Dimensions: 6.3 x 0.8 x 0.8 cm. Serosa: Corona-pink with dilated vasculature. Defect: Not grossly identified. Inking: The proximal margin is inked Blue. Mucosa: Corona-brown and pinpoint. Fecalith: Not grossly identified. Additional: None. Wire Turning Machine Operator sections are submitted in (C1). AA (under the direct supervision of a pathologist) The Gross Description was prepared using a voice recognition system. The report was reviewed for accuracy; however, sound-alike word errors, addition and/or deletions may occur. If there is any question about this report, please contact Client Services. PERFORMING LABORATORY: Technical component was performed by [facility], [address] [place] [id number] (CLIA# [id number]). Professional interpretation was performed by [facility], [address] [place], [place] [address]e., [place] [address] (CLIA#: [id number]). PATIENT NAME: SHILPA MENDES FANNY PATHOLOGY DATE OF : 59 REPORT #: [id number] PHYSICIAN: CAMERON QUARLES PCP: OTHER PCP REPORT IS CONFIDENTIAL AND NOT TO BE RELEASED WITHOUT AUTHORIZATION [facility] [address] [place] [id number] Signed Diagnostician: Viet Barber MD Pathologist Electronically Signed 05/14/2025 Copies: ~ PATIENT NAME: SHILPA MENDES PATHOLOGY DATE OF : 59 REPORT #: [id number] PHYSICIAN: CAMERON QUARLES PCP: OTHER PCP REPORT IS CONFIDENTIAL AND NOT TO BE RELEASED WITHOUT AUTHORIZATION
--- NOTE | 2025-05-14 15:58 | NUR ---
PATIENT IS WALKING AROUND THE UNIT WITH NEPHEW. AMBULATED TWO LAPS. STATES NO CURRENT NEEDS.
--- NOTE | 2025-05-14 19:35 | NUR ---
REPORT RECEIVED FROM MISSAEL MENENDEZ. PATIENT IN CHAIR, CHEST RISE EVEN AND UNLABORED, EYES OPEN, FAMILY AT BEDSIDE. PATIENT REPORTS SHE WOULD LIKE A SHOWER TONIGHT BUT IS UNSURE OF HER ABILITY TO SHOWER BY SELF. I ADVISED PATIENT THAT SHE CAN USE THE SHOWER CHAIR IF NEEDED, PATIENT VERBALIZED UNDERSTANDING. CALL LIGHT AND PERSONAL BELONGINGS IN REACH OF PATIENT. NO APPARENT NEEDS NOTED AT THIS TIME.
--- NOTE | 2025-05-14 20:27 | NUR ---
PATIENT IN CHAIR, EYES OPEN, CHEST RISE EVEN AND UNLABORED. FAMILY AT BEDSIDE. I ASSISTED PATIENT TO SIT ON SIDE OF BED AT PATIENT REQUEST. ASSESMENT, I AN O, MEWS, AND VITAL SIGNS COMPLETE. G TUBE FLUSHED WITH 25 ML TAP WATER PER ORDER. PATIENT DENIES FURTHER CONCERNS AT THIS TIME. IV FLUID INFUSING WITHOUT DIFFICULTY. BISQUE TILE BURNER IN ROOM WITH PATIENT PROVIDING BATHING.
--- NOTE | 2025-05-14 22:52 | NUR ---
PATIENT IN BED WITH HOB RIASED, EYES OPEN, CEHST RISE EVEN AND UNLABORED. PATIENT IS RESTING IN BED, REPORTS 10/10 PAIN. PRN PAIN MEDICATION ADMINISTERED PER PATIENT REQUEST. SCHEDULED IV INFUSION STARTED AND INFUSING WITHOUT DIFFICULTY. REMOVED MIDLINE APTICOAT DRESSING PER ORDER, PATIENT TOLERATED WELL. ASSISTED PATIENT TO BATHROOM AND BACK TO BED. PATIENT DENIES FURTHER CONCERNS AT THIS TIME. CALL LIGHT AND PERSONAL BELONGIGNS IN REACH OF PATIENT.
[2025-05-15] VITALS (11 sets, daily range): BP systolic 130–142; BP diastolic 62–82
--- NOTE | 2025-05-15 00:15 | NUR ---
Pt report received from MISSAEL Guidry
--- NOTE | 2025-05-15 00:37 | NUR ---
PATIENT IN BED WITH HOB RAISED, EYES CLOSED, CHEST RISE EVEN AND UNLABORED. IV FLUID INFUSING WITHOUT DIFFICULTY, SCDS IN PLACE. NO APPARENT NEEDS NOTED AT THIS TIME.
--- NOTE | 2025-05-15 02:00 | NUR ---
In with pt for request for pain meds and pt is nauseated. Pt reports her pain in her abdomen is 9 out of 10. Pt medicated with 4mg zofran slow ivp after IV assessed, IV flushed with 5ml NS, then pt given 1mg IV dilaudid slow IVP, IV flushed. ABX hung at this time. Pt requested a boost in bed, and an emesis bag; however, she did not vomit. Side rails up x4, call light in reach, bedside tables and personal belongings in reach.
--- NOTE | 2025-05-15 03:08 | NUR ---
PATIENT IN BED WITH EYES CLOSED, CHEST RISE EVEN AND UNLABORED. CALL LIGHT AND PERSONAL BELONGINGS IN REACH OF PATIENT. NO APPARENT NEEDS NOTED AT THIS TIME.
--- NOTE | 2025-05-15 04:19 | NUR ---
PATIENT IN BED WITH HOB RAISED, EYES CLOSED, CHEST RISE EVEN AND UNLABORED. CALL LIGHT AND PERSONAL BELONGINGS IN REACH OF PATIENT. IV FLUID INFUSING WITHOUT DIFFICULTY. NO APPARENT NEEDS NOTED AT THIS TIME.
[2025-05-15 05:56] LABS: BASOPHILS 0.2 % (0.1-1.2); EOSINOPHILS 1.8 % (0.7-5.8); LYMPHOCYTES 18.3 % (19.3-51.7); MCH 28.5 PG (25.6-32.2); MCHC 33.6 g/dL (32.2-35.5); MCV 84.6 fL (79.4-94.8); MONOCYTES 6.8 % (4.7-12.5); NEUTROPHILS 72.1 % (34.0-71.1); RBC 3.83 M/uL (3.93-5.22)
[2025-05-15 06:11] LABS: ALT (SGPT) 27.0 U/L (14-59); AST (SGOT) 29.0 U/L (15-37); GLOMERULAR FILTRATION RATE,EST 99.0 mL/min (>60); PROTEIN, TOTAL 4.7 g/dL (6.4-8.2); UREA NITROGEN 18.0 mg/dL (7-18)
--- NOTE | 2025-05-15 06:42 | NUR ---
PATIENT IN BED WITH HOB RAISED, EYES OPEN, CHEST RISE EVEN AND UNLABORED. PATIENT REPORTS 9/10 PAIN, PRN PAIN MEDICATION ADMINISTERED PER PATIENT REQUEST. SCHEDULED IV INFUSION STARTED. IV FLUIDS INFUSING WITHOUT DIFFICULTY. CALL LIGHT AND PERSONAL BELONGINGS IN REACH OF PATIENT. PATIENT DENIES FURTHER CONCERNS.
--- NOTE | 2025-05-15 07:15 | NUR ---
RECEIVED REPORT FROM MISSAEL NIETO. PATIENT RESTING WITH EYES CLOSED, CALL LIGHT IN REACH, BED LOWERED.
[2025-05-15] MEDS ORDERED: MAGNESIUM SULFATE 2 GM/50 ML BAG IV ONE (09:00)
--- NOTE | 2025-05-15 09:45 | NUR ---
Spoke with Jayshree while Dr. Carbone in the room. He again reminded pt she will most likely dc on Sat. Her friends will arrive Sat and plan on staying the night if pt is unable to dc. Dr. Carbone explained to pt she will not have HH as she does not have a pcp in [place]. Pt explained her friends spouse had a colostomy and plans on helping her. Pt nephew is in the room. Pt plan on going to [place] on Sat and then returning to [place] by flight in 1 week. Her nephew will fly to [place] with her. He works for [employer] and meet her in [place] to fly home. Pt has walking sticks in the room, but is agreeable to a walker as recommended by PT. Rn in room and will educate pt on ostomy changes. Pt given the option of [facility] or [facility] for her walker and chooses [facility].
[2025-05-15] MEDS ORDERED: CIPROFLOXACIN 500 MG TAB PO SCH (10:10)
--- NOTE | 2025-05-15 10:23 | NUR ---
PATIENT IN CHAIR AT THIS TIME. BRANCH ASSOCIATE TELLER CHARTED VITALS AND I&O'S. CALL LIGHT WITHIN REACH, NO FURTHER NEEDS AT THIS TIME.
[2025-05-15] MEDS ORDERED: FAMOTIDINE 20 MG TAB PO SCH (11:30)
[2025-05-15] MEDS ORDERED: IBUPROFEN 600 MG TAB PO PRN (13:30)
[2025-05-15] MEDS ORDERED: OXYCODONE/APAP 7.5/325 TAB PO PRN (13:30)
--- NOTE | 2025-05-15 13:31 | NUR ---
PER PRIMARY RN, ONLY HAS X1 DOSE OF IV TYLENOL LEFT FOR PAIN, PT REUQESTING SOMETHING FOR PAIN. CALL TO MD, TELEPHONE ORDER FOR PERCOCET 7.5/325MG Q6HRS PRN, MOTRION 600MG Q6HRS PRN. ORDERS VERIFIED WITH REPEAT BACK. ORDERS INPUT INTO COMPUTER AND PRIMARY RN NOTIFIED.
--- NOTE | 2025-05-15 13:58 | NUR ---
PATIENT IN CHAIR AT THIS TIME. LABOR RELATIONS OR PERSONNEL NEGOTIATOR CHARTED VITALS AND I&O'S. CALL LIGHT WITHIN REACH, NO FURTHER NEEDS AT THIS TIME.
--- NOTE | 2025-05-15 15:00 | NUR ---
Rx signed for walker by Dr. Lopez and chart faxed to [facility]. I called [facility] and they can deliver tomorrow.
--- NOTE | 2025-05-15 16:45 | NUR ---
THIS RN AND MISSAEL MENENDEZ IN PATIENTS BATHROOM WITH PATIENT GOING OVER HOW TO CHANGE AN OSTOMY WITH SUPPLIES PROVIDED. OSTOMY CHANGED AND NO OTHER NEEDS AT THIS TIME.
--- NOTE | 2025-05-15 18:49 | NUR ---
PATIENT IS IN HER CHAIR AT THIS TIME, NEPHEW IS IN ROOM, COMMERCIAL ASSISTANT CHARTED VITALS AND I&O'S, CALL LIGHT WTIH IN REACH AND NOTHING ELSE NEEDED AT THIS TIME.
--- NOTE | 2025-05-15 19:28 | NUR ---
RECEIVED REPORT FROM MISSAEL MENENDEZ AND MISSAEL CERNA. PT IN THE CHAIR, DENIES NEEDS AT THIS TIME. CALL LIGHT IN REACH.
--- NOTE | 2025-05-15 20:27 | NUR ---
PT BACK IN BED, VITAL SIGNS TAKEN AND RECORDED. INTAKE AND OUTPUT RECORDED. C/O 10/10 PAIN, PRN PAIN MEDICATION GIVEN. DUE MEDS GIVEN. DENIES FURTHER NEEDS. CALL LIGHT IN REACH.
[2025-05-15] MEDS ORDERED: GABAPENTIN 300 MG CAP PO SCH (21:00)
--- NOTE | 2025-05-15 22:03 | NUR ---
TC TO DR. RAMIREZ. INFORMED OF PATIENT URINARY FREQUENCY, BURNING WITH URINATION AND PAIN WITH URINATION. UA ORDERED, CLEAN CATCH OBTAINED AND SENT TO LAB.
[2025-05-15 22:05] LABS: BLOOD/HGB, URINE NEGATIVE (Negative); KETONE, URINE NEGATIVE (Negative); LEUK ESTERASE, URINE TRACE (negative); NITRITE, URINE NEGATIVE (negative)
[2025-05-15 22:10] LABS: BACTERIA, URINE RARE /hpf (negative); CASTS, URINE NONE SEEN \\lpf; CRYSTALS, URINE NONE SEEN (0-1+)
[2025-05-15 22:11] LABS: REFLEX CULTURE, URINE No (No)
[2025-05-16] VITALS (9 sets, daily range): BP systolic 135–151; BP diastolic 58–71
--- NOTE | 2025-05-16 00:45 | NUR ---
PT SLEEPING IN BED, RESPIRATIONS EVEN AND UNLABORED. NO NEEDS NOTED AT THIS TIME. CALL LIGHT IN REACH.
--- NOTE | 2025-05-16 01:54 | NUR ---
PT SLEEPING IN BED, RESPIRATIONS EVEN AND UNLABORED. NO NEEDS NOTED AT THIS TIME. CALL LIGHT IN REACH.
--- NOTE | 2025-05-16 02:43 | NUR ---
ASSISTED PT TO BATHROOM SBA. VOIDED 400ML TO HAT. NO OTHER NEEDS, CALL LIGHT INREACH, BED ALARM ACTIVE
--- NOTE | 2025-05-16 03:54 | NUR ---
PT SLEEPING IN BED, RESPIRATIONS EVEN AND UNLABORED. NO NEEDS NOTED AT THIS TIME. CALL LIGHT IN REACH.
[2025-05-16 05:37] LABS: BASOPHILS 0.4 % (0.1-1.2); EOSINOPHILS 3.8 % (0.7-5.8); LYMPHOCYTES 20.0 % (19.3-51.7); MCH 28.4 PG (25.6-32.2); MCHC 33.9 g/dL (32.2-35.5); MCV 83.7 fL (79.4-94.8); MONOCYTES 9.9 % (4.7-12.5); NEUTROPHILS 63.6 % (34.0-71.1); RBC 3.98 M/uL (3.93-5.22)
[2025-05-16 05:51] LABS: GLOMERULAR FILTRATION RATE,EST 98.0 mL/min (>60); UREA NITROGEN 12.0 mg/dL (7-18)
--- NOTE | 2025-05-16 06:52 | NUR ---
PT AMBULATED TO THE BATHROOM WITH FWW X1PA. G TUBE FLUSHED ORDERED. COLOSTOMY BAG CHANGED. INTAKE AND OUTPUT RECORDED. C/O 03/27 PAIN, PRN PAIN MEDICATION GIVEN PER PT REQUEST. DENIES FURTHER NEEDS. CALL LIGHT IN REACH.
--- NOTE | 2025-05-16 07:41 | NUR ---
REPORT RECEIVED FROM MATTHEW CANAS. PT RESTING IN BED WITH EYES CLOSED AND RESPIRATIONS EVEN AND UNLABORED. CALL LIGHT WITHIN REACH.
[2025-05-16] MEDS ORDERED: MAGNESIUM SULFATE 2 GM/50 ML BAG IV SCH (09:00)
--- NOTE | 2025-05-16 10:00 | NUR ---
Spoke with Rachel from [facility] [place]. Pts walker will be delivered to her room today. Pt cont. to plan to dc to [place] with friends tomorrows. No further needs from Dm.
--- NOTE | 2025-05-16 10:48 | NUR ---
PT NOT AVAILABLE FOR VISIT. PROVIDED PRAYER.
--- NOTE | 2025-05-16 12:28 | NUR ---
DR DEL CASTILLO IN TO SEE PT AND DISCUSS POC. DR DEL CASTILLO REMOVED VICTOR M, PT TOLERATED WELL.
--- NOTE | 2025-05-16 15:04 | NUR ---
PT JUST TOOK SHOWER, TOLERATED WELL. PT UP AMBULATING IN LARKIN, SEVERAL LAPS, WITH FWW AND SBA. PT TOLERATED WELL. PT TO CHAIR WITH CALL LIGHT WITHIN REACH. NO REQUESTS AT THIS TIME.
--- NOTE | 2025-05-16 15:09 | NUR ---
PT HAS G-TUBE, AND COLOSTOMY DRAINING LIQUID BROWN STOOL.
--- NOTE | 2025-05-16 16:48 | NUR ---
PATIENT IN CHAIR AT THIS TIME. COMMUNICATIONS STRATEGIST CHARTED VITALS AND I&O'S. CALL LIGHT WITHIN REACH, NO FURTHER NEEDS AT THIS TIME.
--- NOTE | 2025-05-16 17:28 | NUR ---
PT SITTING UP IN CHAIR EATING DINNER. CALL LIGHT WITHIN REACH.
--- NOTE | 2025-05-16 19:33 | NUR ---
PT RESTING IN THE CHAIR. REPORTED GETTING MORE COMFORTABLE TAKING CARE OF HER OSTOMY. EXPRESSED WILLINGNESS TO LEARN MORE. DENIES NEEDS AT THIS TIME. CALL LIGHT IN REACH.
--- NOTE | 2025-05-16 20:20 | NUR ---
call light answered, pt assisted with getting back into bed. assistance with ble provided. vs and i&o's completed, fresh ice water also given. pt waiting to empty ostomy with primary rn per pt, small amount output noted. no additional needs or concerns verbalized, call light in reach. primary rn updated.
--- NOTE | 2025-05-16 22:40 | NUR ---
PT RESTING IN BED, RESPIRATION EVEN AND UNLABORED. DUE MEDICATIONS GIVEN. PT EMPTIED AND BURPED HER COLOSTOMY BAG. AMBULATED TO THE BATHROOM WITH THE FWW X1PA, TOLERATED WELL. DENIES FURTHER NEEDS AT THIS TIME. CALL LIGHT IN REACH.
--- NOTE | 2025-05-16 23:27 | NUR ---
PT SLEEPING IN BED, RESPIRATIONS EVEN AND UNLABORED. NO NEEDS IDENTIFIED AT THIS TIME. CALL LIGHT IN REACH.
--- NOTE | 2025-05-17 02:08 | NUR ---
ASSISTED PT TO THE BATHROOM WITH FWW X1PA, FAIRLY TOLERATED. C/0 9-10/10 PAIN, PRN PAIN MEDICATION GIVEN PER PT REQUEST. DENIES FURTHER NEEDS. CALL LIGHT IN REACH.
--- NOTE | 2025-05-17 03:39 | NUR ---
PT SLEEPING IN BED. RESPIRATIONS EVEN AND UNLABORED. NO NEEDS IDENTIFIED AT THIS TIME. CALL LIGHT IN REACH.
[2025-05-17 06:16] VITALS: BP 110/70
[2025-05-17 06:18] VITALS: BP 110/70
--- NOTE | 2025-05-17 06:34 | NUR ---
PT RESTING IN BED. VITAL SIGNS TAKEN AND RECORDED. INTAKE AND OUTPUT RECORDED. IRRIGATED G TUBE ORDERED. PT AMBULATED TO THE BATHROOM WITH FWW X1PA, TOLERATED WELL. C/O PAIN ON ABD, PRN PAIN MEDICATION GIVEN PER PT REQUEST. DENIES FURTHER NEEDS. CALL LIGHT IN REACH.
--- NOTE | 2025-05-17 07:20 | NUR ---
REPORT RECEIVED FROM MATTHEW Velasquez RN.
[2025-05-17 09:56] VITALS: BP 128/63
--- NOTE | 2025-05-17 10:02 | NUR ---
pt up ambulating in the halls with fww, tolerating well.
[2025-05-17 10:19] VITALS: BP 128/63
--- NOTE | 2025-05-17 11:00 | NUR ---
PATIENT WAS IN THE SHOWER AT THIS TIME AND NEEDED ASSISTANCE OUT OF THE SHOWER, I CLEANED UP THE WET LINENS AND FLOOR, TIDYED HER ROOM, CALL LIGHT WITH IN REACH AND NOTHING ELSE NEEDED AT THIS TIME.
[2025-05-17] MEDS ORDERED: OXYCODON-ACETA1 EAC2 PO (11:14)
[2025-05-17] MEDS ORDERED: NEURONTIN300 MG PO (11:14)
[2025-05-17] MEDS ORDERED: ZOLPIDEM TARTRAT5 MG PO (11:15)
--- NOTE | 2025-05-17 11:59 | NUR ---
PT'S OSTOMY BAG SOILED AND WET ON THE OUTSIDE AFTER PT EMPTIED IT. PT WAS ABLE TO DEMONSTRATE CHANGING HER OWN OSTOMY BAG TO THIS RN.
--- NOTE | 2025-05-17 12:32 | NUR ---
DR DEL CASTILLO IN TO DISCUSS POC WITH PT. PT STATED UNDERSTANDING. PT SITTING UP IN CHAIR EATING LUNCH. NO REQUESTS AT THIS TIME. CALL LIGHT WITHIN REACH.
--- NOTE | 2025-05-17 14:10 | DS ---
[facility] [address], [place] [address] Signed ADMISSION DATE: 05/10/2025 DISCHARGE DATE: 05/17/2025 REASON FOR ADMISSION: Progressive sepsis related to stercoral colitis/colonic ischemia. HISTORY OF PRESENT ILLNESS: This 69-year-old white woman was traveling with friends. She lives in [place]. She presented to emergency room with severe abdominal pain. She was noted to have progressive constipation in the past week or so. Her pain became unbearable and she presents to the emergency room at [facility]. The patient was noted to be hypothermic with a temperature of 95.2, and severe abdominal pain requiring opiate medication for minimal relief. A CT scan revealed "colitis." Further review confirmed considerable amount of stool within the colon particularly involved in the inflammation was the transverse colon, splenic flexure and left colon. The patient was admitted for further management on that basis. PERTINENT PHYSICAL EXAMINATION: VITAL SIGNS: At presentation showed a temperature of 34.0 to 35.2, pulse 60, respirations 14, blood pressure 104/49, oxygen saturation 97% on room air. CHEST: Clear. HEART: Regular. ABDOMEN: Tender but nondistended. LABORATORY STUDIES: Showed normal electrolytes. Creatinine was 0.88. White count 10.0, hematocrit 40.0, and platelets 234,000. HOSPITAL COURSE: She was admitted and given her severe pain, fluid resuscitated aggressively and surgical consultation undertaken. Her evaluation at my time of examination showed labs to have worsened quite markedly with a white count of 21.7, hematocrit elevated to 47 from 40. Creatinine rising to 1.15 and a lactic acid up from 0.6 to 2.3. Subsequent repeat showed elevated to 4.1. Clinical exam showed a scaphoid abdomen with mild tenderness in the epigastric area, but no ascites. A CT scan was repeated to see if there was free air or other finding. Though, originally thought to possibly be ischemic colitis based on the distribution of her inflammation on CT. The considerable amount of stool within the colon was more suggestive actually of a stercoral colitis. The patient had some progression in her toxicity, became somewhat hypotensive requiring not only IV fluids, but low-dose Electronically Signed By: OSMAN DEL CASTILLO MD 05/17/25 1410 PATIENT NAME: SHILPA MENDES DISCHARGE SUMMARY DATE OF : 59 REPORT #: [id number] PHYSICIAN: OSMAN DEL CASTILLO MD PCP: OTHER PCP REPORT IS CONFIDENTIAL AND NOT TO BE RELEASED WITHOUT AUTHORIZATION [facility] [address], [place] [address] [address] scan repeat showed a fair amount of intraabdominal fluid, not present before and a considerable amount of stool within the colon particular in the area in question the splenic flexure and she was just considered likely to have stercoral colitis rather than a more typical ischemic colitis. Given her progression of symptoms surgical intervention was recommended and late at night on the day of surgical evaluation, she underwent exploration of the abdomen. She was found to have extreme ischemia of the entire left colon, transverse colon, and much of the right colon, likely related to stool impaction. Operation consisted of exploration and subtotal colectomy, preservation of some amount of sigmoid colon and colostomy using the cecal remnant with excision rather of the appendix. It is anticipated that a cecal proctoscopy may be possible on that basis. Splenic flexure mobilization was required and given the high likelihood she would have a prolonged ileus. A Anita gastrostomy also placed for decompression so as to avoid a nasogastric tube. Additionally, the right internal jugular central venous catheter was placed. Thereafter, she had immediate and impressive improvement and resolution of her systemic toxicity. Her lactic acid decreased to 2.2 and her vital signs became quite normal. Effluent from her G-tube was clear and a drain was placed showed only serosanguineous fluid. Her ostomy began to have good output promptly. She was transferred from the intensive care unit to the regular nursing floor where she continued to improve. Her diet was advanced from a liquid diet to a regular diet which she tolerated well and good ostomy function was noted. The G-tube that was placed was capped off and was only briefly required for decompression it is noted. Removal of the tube was deemed inadvisable for at least four weeks following its placement. The patient at time of discharge is ambulating well, tolerating a regular diet, has minimal incisional pain, well controlled by oral analgesics. The ostomy is quite viable and she is able to manage her ostomy well. It is anticipated she will return to [place]. For the next two days, she will be staying with her friends in [place], [place] and taken by her nephew home to [place]. She will follow up on the short term with her primary provider, Dr. Ainsley Dugan [address] [place] [address], office #[phone]. My recommendations would be to remove the gastrostomy tube in four weeks. This is done by deflating the balloon with a white port which I have demonstrated to the patient expecting approximately 10 mL of fluid and simple removal of the tube with application of bandage. She should do this on an empty stomach to avoid spillage of gastric contents of course. Electronically Signed By: OSMAN DEL CASTILLO MD 05/17/25 1064 PATIENT NAME: SHILPA MENDES DISCHARGE SUMMARY DATE OF : 59 REPORT #: [id number] PHYSICIAN: OSMAN DEL CASTILLO MD PCP: OTHER PCP REPORT IS CONFIDENTIAL AND NOT TO BE RELEASED WITHOUT AUTHORIZATION [facility] [address], [place] [address] Signed My recommendation would be to takedown of the colostomy in 3 to 6 months. I am anticipating that Dr. Dugan will be able to set up referral locally with a general surgeon or colorectal surgeon for that purpose. Alternatively, if the patient chooses to travel to [place], [place] again for takedown of the ostomy I am certainly prepared to do that if she so desires. Other instructions she should lift no more than 20 pounds for the next four weeks. Her pablo will have been removed and Steri-Strips applied. She should flush her G-tube once a day with tap water simply to keep it patent and change her ostomy as previously directed. Other cultures of peritoneal fluid did confirm Bacteroides species including Bacteroides fragilis. Notably Gram stain obtained at time of operation showed moderate white cells, but no organisms. Her pathology report is still pending. DISCHARGE DIAGNOSES: 1. Systemic sepsis secondary to severe stercoral colitis including transverse and left colon with extension of ischemic changes to right colon. 2. Status post exploration of abdomen and subtotal colectomy with cecostomy and appendectomy anticipating a cecal proctoscopy takedown in 3 to 6 months. 3. Previous history of chronic constipation. 4. Presentation to ER with hypothermia, temperature 95.0. 5. Allergy to penicillin. MD PRESTON Lee/KEYONA /[id number] cc: Dr. Ainsley Dugan [address] [place] [id number] Polanco Electronically Signed By: OSMAN DEL CASTILLO MD 05/17/25 1410 PATIENT NAME: SHILPA MENDES DISCHARGE SUMMARY DATE OF : 59 REPORT #: [id number] PHYSICIAN: OSMAN DEL CASTILLO MD PCP: OTHER PCP REPORT IS CONFIDENTIAL AND NOT TO BE RELEASED WITHOUT AUTHORIZATION [facility] [address], [place] [address] Lopez Copies: ~ Electronically Signed By: OSMAN DEL CASTILLO MD 05/17/25 1410 PATIENT NAME: SHILPA MENDES DISCHARGE SUMMARY DATE OF : 59 REPORT #: [id number] PHYSICIAN: OSMAN DEL CASTILLO MD PCP: OTHER PCP REPORT IS CONFIDENTIAL AND NOT TO BE RELEASED WITHOUT AUTHORIZATION
--- NOTE | 2025-05-17 14:10 | OR ---
[facility] [address], [place] [address] Signed DATE OF OPERATION: 05/12/2025 SURGEON: Osman Del Castillo MD TIME: 12:10 a.m. PREOPERATIVE DIAGNOSIS: Sepsis secondary to stercoral colitis of transverse, splenic flexure, and left colon. POSTOPERATIVE DIAGNOSIS: Sepsis secondary to stercoral colitis of transverse, splenic flexure, and left colon with extension of ischemic and necrotic changes proximally to mid ascending colon. PROCEDURES: 1. Exploration of the abdomen and subtotal colectomy with cecostomy and sparing of rectum and distal portion of sigmoid, prolonged, complicated, difficult. 2. Appendectomy. 3. Splenic flexure mobilization. 4. Placement of gastrostomy tube (Anita gastrostomy). 5. Placement of right internal jugular central venous catheter after ultrasound guidance access of right internal jugular vein. ANESTHESIA: General endotracheal; Yogesh Pierson CRNA; Jamia Antonio RN; and Krystal Fonseca RN. INDICATION: This 69-year-old white woman is from [place] and was traveling with 2 friends through [facility] yesterday where she presented with the onset of severe and unrelenting disabling abdominal pain relatively sudden in onset. She has had progressive constipation over the past week or so in part related to her travels. She does not generally have constipation apparently. Evaluation in the emergency room was undertaken, which showed severe tenderness of the abdomen initially with a normal lactic acid level and white count of only 10. A CT scan was performed which showed circumferential thickening of the transverse colon, splenic flexure, and portion of left colon with a considerable amount of stool within the colon. She was considered initially possibly to have ischemic colitis based on the distribution of the findings, but given her significant stool burden in the colon, more likely a stercoral colitis. She was directly admitted to the hospital, given IV antibiotics, IV fluids, and though clinically felt somewhat better, her lab studies worsened quite markedly with a lactic Electronically Signed By: OSMAN DEL CASTILLO MD 05/17/25 1410 PATIENT NAME: SHILPA MENDES OPERATIVE REPORT DATE OF : 59 REPORT #: [id number] PHYSICIAN: OSMAN DEL CASTILLO MD PCP: OTHER PCP REPORT IS CONFIDENTIAL AND NOT TO BE RELEASED WITHOUT AUTHORIZATION [facility] [address], [place] [address] Signed acid level greater than 4 and a white count 22,000. My evaluation showed her to have low-grade hypotension and some tachycardia despite aggressive fluid resuscitation by the admitting physician, Dr. Polanco. Given the probability of a significant stercoral colitis, a CT scan was repeated which showed a fair amount of intraabdominal fluid and a significant colonic stool burden that is likely confirming the diagnosis of stercoral colitis. The patient has had recurrent hypotension and diminished urine output despite aggressive measures of resuscitation, and a CBC was repeated showing a white count of greater than 27,000 and a lactate going up now to somewhat higher than 5. Under those circumstances, I have recommended immediate exploration and partial colectomy with colostomy and other indicated procedures. The patient and her friends who travel with her understand there are special risks in this situation including, but not limited to, bleeding, infection, need for additional interventions and so forth. FINDINGS: She did have low-grade hypotension for which pressor agents were required during operation. She did maintain a good urine output of 0.5 to 1 mL/kg/hour. Found was extremely ischemic and possibly necrotic transverse colon, left colon, and splenic flexure with sparing of the rectum and the distal most sigmoid which were spared. The more proximal colon was quite markedly dilated and with patchy necrosis as well. Ultimately, much of the right colon was resected in addition to the remaining colon as described. A cecostomy was fashioned so as to preserve her cecum for future takedown to the rectal and distal sigmoid remnant. Her small bowel was entirely normal without sign of ischemia or other problems. Gallbladder was normal as was her liver and the pancreas. The duodenum was normal also. Given the high probability of prolonged ileus in such cases, a gastrostomy was placed for decompression and possible enteral feeding later. Given her acute critical illness, a central venous catheter was additionally placed after the procedure was over with ultrasound guidance. DESCRIPTION OF PROCEDURE: The patient was brought to the operating room, given a general endotracheal anesthetic. Preoperative antibiotics, Cipro and Flagyl, had been given. A Tate catheter was already in place. After satisfactory general endotracheal anesthesia, the abdomen was prepared with a chlorhexidine solution and draped sterilely. Palpation of the abdominal wall demonstrated thick dough-like loops of bowel concordant to CT scan findings of significant fecal impaction. A long midline incision was made and extended superiorly and inferiorly as necessary. Some infusion of pressor agents was required to maintain Electronically Signed By: OSMAN DEL CASTILLO MD 05/17/25 1410 PATIENT NAME: SHILPA MENDES OPERATIVE REPORT DATE OF : 59 REPORT #: [id number] PHYSICIAN: OSMAN DEL CASTILLO MD PCP: OTHER PCP REPORT IS CONFIDENTIAL AND NOT TO BE RELEASED WITHOUT AUTHORIZATION [address] [address] Signed the blood pressure, but additional fluid was given as well. Upon opening the abdomen, one could clearly see a markedly dilated colon and ischemic/necrotic segment of transverse colon. A Bookwalter retractor was affixed to the table. Copious amounts of ascites-type fluid was suctioned free. There was no sign of malignancy in any way. A Bookwalter retractor was affixed to the table. The small bowel was tacked to the right side of the abdomen to concentrate on the left colon, which was quite markedly ischemic as well. The white line of Toldt was incised, and the left colon and sigmoid were mobilized to the midline in the avascular plane. The left ureter was identified and unharmed. Further dissection was taken mobilizing the splenic flexure which was quite challenging as it was extremely high. No injury attended this mobilization due to extreme caution in doing so. Spleen was left unharmed. Portion of omentum was freed, and the plane between the stomach and the transverse mesocolon developed with all due care, additionally mobilizing the very dilated and ischemic or possibly necrotic transverse colon. The right colon quite notably had dilation and ischemic changes as well more so than what would have been expected on the CT scan. This area was mobilized as well. The hepatic flexure was challenging to mobilize as well given its high position. Ultimately, all of the colon was freed to the midline. An attempted decompression of the right colon was unsuccessful and was later secured with interrupted 3-0 silk sutures. A pursestring suture for decompression had been placed, and no significant decompression was afforded at that time. The mesentery to the mid sigmoid was secured with clamps, and division of the distal sigmoid in an area clearly viable was undertaken. Firm balls of stool in the rectum and in the sigmoid were milked into the specimen site clearing much of the rectum completely of any impacting stool. Mesenteric division was undertaken over the transverse colon area avoiding carefully any interruption of the superior mesenteric vessels proper. Upon mobilization of the transverse colon, it appeared that the hepatic flexure was ischemic as well. Whether this was secondary to the stercoral colitis problem or simply dilation related to the obstructive nature of the colon is uncertain. Further mobility and mobilization of the right colon was undertaken. Ultimately, an area just distal to the cecum was transected with a NACHO stapling device, and the specimen was explanted and examined on the back table. The most proximal portions of right colon had patchy necrosis. An additional segment of cecum was excised to provide viable tissue. At this point, a complete explantation of the ischemic/necrotic colon was accomplished. Irrigation was undertaken with warm saline solution. A right-sided ostomy site was fashioned transecting the skin with a 20 blade and fashioning an ostomy exit site in the usual way through the right rectus abdominis Electronically Signed By: OSMAN DEL CASTILLO MD 05/17/25 1410 PATIENT NAME: SHILPA MENDES OPERATIVE REPORT DATE OF : 59 REPORT #: [id number] PHYSICIAN: OSMAN DEL CASTILLO MD PCP: OTHER PCP REPORT IS CONFIDENTIAL AND NOT TO BE RELEASED WITHOUT AUTHORIZATION [address] [address] Signed muscle in an area marked preoperatively as appropriate for ostomy and definitely out of the transverse abdominal skin crease as had been noted preoperatively. The cecal portion was delivered through the ostomy site with a Madie clamp transecting the rectus muscles longitudinally and with a cruciate incision in the posterior rectus sheath. A Madie clamp was applied to this area for maturation later. The window lateral to the ileum extending up the abdominal wall was secured with interrupted 3-0 silk sutures to avoid internal herniation. Given the high likelihood of a prolonged postoperative ileus in such situations, a G-tube was deemed advisable for decompression and for future feeding. In the technique of Anita, the midportion of the stomach was identified, and pursestring suture of 3-0 silk was applied. Anterior gastric wall was opened with meticulous cautery technique, and a 24-Yoruba NARESH tube was passed percutaneously in the left upper quadrant and placed into the gastrostomy. The pursestring sutures were secured, and the stomach serosa attached to the abdominal wall with interrupted 3-0 silk suture. The balloon had been tested and was inflated, and this sahil the stomach up snugly against the anterior abdominal wall as well. The tube was capped off at that point. Irrigation was undertaken within the abdominal cavity showing no sign of bleeding or other problems. Through a left lower quadrant stab incision, a 7 mm flat Donn drain was placed extending to the right paracolic gutter. Plans were then made for closure. The midline fascia was reapproximated with running bidirectional #1 PDS suture. Subcutaneous tissue was irrigated, and the skin was closed with stapling device, and an Acticoat dressing was applied. The cecostomy was then matured with interrupted 3-0 Vicryl suture. Some of the mucosa appeared somewhat ischemic, and the cecal portion was drawn more fully into the wound to assure viable mucosa for the ostomy which was ultimately assured. An ostomy appliance was applied. While the patient was still intubated, it was deemed advisable to place a central venous catheter. The right neck was prepared with a chlorhexidine solution and draped sterilely after gown and glove change. Using the SonTrivop ultrasound device, the right internal jugular vein was easily identified after a sterile preparation of the neck and application of sterile drapes. Under direct guidance, the right internal jugular vein was easily cannulated showing dark nonpulsatile blood. A flexible J-wire was passed down the needle. Needle was removed. The site was incised with an 11 blade and dilated with a balloon dilator, and a previously inspected and irrigated Arrow blue tip triple-lumen catheter was passed over the wire. Catheter was withdrawn a few centimeters given her body habitus and secured to the skin with the Enclose suture Electronically Signed By: OSMAN DEL CASTILLO MD 05/17/25 1410 PATIENT NAME: SHILPA MENDES OPERATIVE REPORT DATE OF : 59 REPORT #: [id number] PHYSICIAN: OSMAN DEL CASTILLO MD PCP: OTHER PCP REPORT IS CONFIDENTIAL AND NOT TO BE RELEASED WITHOUT AUTHORIZATION [facility] [address] [place] [id number] Signed device. A sterile internal jugular catheter dressing was applied. After the placement of the catheter, aspiration on the distal port showed dark nonpulsatile blood, and all ports had been flushed with sterile saline. The patient then underwent bilateral TAP blocks by the route jumper for postoperative analgesic benefit. She was extubated and anticipating transfer to the intensive care unit for further management. Blood loss was approximately 150 mL in total. Sponge, needle, and instrument counts were reported as correct x3. The operation was prolonged, complicated, and difficult, lasting more than 4 hours in aggregate. MD PRESTON Lee/KEYONA /[id number] cc: Dr. Darrin Polanco Copies: ~ Electronically Signed By: OSMAN DEL CASTILLO MD 05/17/25 1410 PATIENT NAME: SHILPA MENDES FANNY OPERATIVE REPORT DATE OF : 59 REPORT #: [id number] PHYSICIAN: OSMAN DEL CASTILLO MD PCP: OTHER PCP REPORT IS CONFIDENTIAL AND NOT TO BE RELEASED WITHOUT AUTHORIZATION
--- NOTE | 2025-05-17 14:10 | CONS ---
[facility] [address] [place], [place] [address] Signed DATE OF CONSULTATION: 05/11/2025 TIME: 12 noon. REQUESTING PHYSICIAN: Dr. Polanco. PROBLEM: Inflammation of transverse and splenic flexure of colon on CT scan, progression to oliguria and hypotension. HISTORY OF PRESENT ILLNESS: This 69-year-old white woman, lives in [place] and was traveling to visit friends in [place] and passing through [place] on the way to [place]. She was taken to the emergency room locally having left [place], having some fecal urgency and need for bowel movement, though she has been constipated for several days related to her travels. She does not usually have a constipation problem. She became diaphoretic and lethargic and presentation to the emergency room showed her to have extreme discomfort. Her presenting vital signs showed a temperature of 95.4, pulse of 62, respirations 18, and blood pressure 110/60. She had tenderness to palpation of the abdomen. Lab studies showed a white count of 10.3, hematocrit 40, and platelets of 234,000. Liver enzymes were normal. Chem profile was essentially normal. Creatinine 0.88. A CT scan was performed, which showed a long segment of circumferential wall inflammation of the transverse colon extending to the mid left colon consistent with colitis, considered infectious or inflammatory. There was a large problem of colonic stool as well. I was called by the emergency room physician in regard to this and having not seen the patient, did suggest this likely represented ischemic colitis based on its distribution and sudden onset and so forth. The patient was admitted to hospitalist service with antibiotics initiated and fluids administration and observation. Consideration will be made for confirmatory colonoscopy. Since admission actually to the intensive care unit, she has somewhat worsened and that she is now with a temperature this morning of 100.3, pulse of 100 to 111, and blood pressure from 112/63, now to 78 to 95 systolic. She remains awake, but is slightly confused. She is attended to by her friends from [place]. PAST MEDICAL HISTORY: Electronically Signed By: OSMAN DEL CASTILLO MD 05/17/25 1410 PATIENT NAME: SHILPA MENDES CONSULTATION DATE OF : 59 REPORT #: [id number] PHYSICIAN: OSMAN DEL CASTILLO MD PCP: OTHER PCP REPORT IS CONFIDENTIAL AND NOT TO BE RELEASED WITHOUT AUTHORIZATION [facility] [address] [place], [place] [address] Signed Notable for interstitial cystitis. LABORATORY DATA: Her lab studies have worsened as well. Her white count was 10.3 at admission, now at 21.7; hematocrit now 47, previously 40; platelets 257,000. Chem profile: Creatinine now 1.15, previously 0.88. She has been given a bolus of lactated Ringer's solution. Her lactic acid upon presentation was 0.6, this morning 2.3 and repeat at 11:00 a.m. was 4.1, increasing. REVIEW OF SYSTEMS: The patient has improved abdominal pain actually. There is only mild pain she says. She has no shortness of breath or chest pain. PHYSICAL EXAMINATION: GENERAL: Pleasant white woman who responds to questions, but has some slight amount of confusion I think. VITAL SIGNS: Current temperature is 99, pulse 100, blood pressure 106/95. NECK: Trachea is midline. HEENT: Mucous membranes are still slightly dry. CHEST: Shows normal respiratory excursion without tachypnea. ABDOMEN: Scaphoid, nondistended. There is mild tenderness in the epigastric area. She has no ascites. EXTREMITIES: Show no clubbing, cyanosis, or edema. ASSESSMENT: My initial impression based on history was that of ischemic colitis at the splenic flexure, which would be a typical distribution for it, but she has had no diarrhea and no gross bloody diarrhea, though I was told at some point that she has had some blood per rectum. She may have a stercoral colitis with perforation, which is now manifesting more intensively. She is covered by antibiotics including Cipro and Flagyl, which are appropriate under the circumstances. I would recommend a repeat CT scan be obtained to assess if there is now free air or other findings that would better characterize her decline right now. Continued use of IV fluids and if necessary, low level pressor agents pending more clear diagnosis of the problem. I have communicated this directly to Dr. Polanco, he was implementing these measures as well. Osman Del Castillo MD Electronically Signed By: OSMAN DEL CASTILLO MD 05/17/25 1410 PATIENT NAME: SHILPA MENDES CONSULTATION DATE OF : 59 REPORT #: [id number] PHYSICIAN: OSMAN DEL CASTILLO MD PCP: OTHER PCP REPORT IS CONFIDENTIAL AND NOT TO BE RELEASED WITHOUT AUTHORIZATION [address] [address] Signed /ANETTE /[id number] cc: Dr. Polanco Copies: ~ Electronically Signed By: OSMAN DEL CASTILLO MD 05/17/25 1410 PATIENT NAME: SHILPA MENDES FANNY CONSULTATION DATE OF : 59 REPORT #: [id number] PHYSICIAN: OSMAN DEL CASTILLO MD PCP: OTHER PCP REPORT IS CONFIDENTIAL AND NOT TO BE RELEASED WITHOUT AUTHORIZATION
[2025-05-17 14:23] VITALS: BP 147/63
--- NOTE | 2025-05-17 14:41 | NUR ---
PT [facility] REMOVED TO MIDLINE INCISION AND STERI STRIPS PLACED ORDERED. PT ALSO DEMONSTRATED TO THIS RN HOW TO FLUSH HER G TUBE ACCURATELY. ALL QUESTIONS ANSWERED REGARDING G-TUBE AND COLOSTOMY, AND INCISION HOME CARE.
[2025-05-17 14:50] VITALS: BP 147/63
== END 2025-05-17 15:05 | disposition home or self-care (01) | DRG 853 ==
LOC: ED 14:52 → CCU 18:24 → MS 18:24 → CCU 20:15 → MS 20:47
PROVIDERS: Emergency Medicine; Student in an Organized Health Care Education/Training Program; ADMIT Family Medicine; ATTEND Surgery
PROC: 3E03329 Introduction of Other Anti-infective into Peripheral Vein, Percutaneous Approach (ICD-10-PCS; 2025-05-10)
PROC: 0T9B70Z Drainage of Bladder with Drainage Device, Via Natural or Artificial Opening (ICD-10-PCS; 2025-05-11)
PROC: 5A09357 Assistance with Respiratory Ventilation, Less than 24 Consecutive Hours, Continuous Positive Airway Pressure (ICD-10-PCS; 2025-05-11)
PROC: 0DTF0ZZ Resection of Right Large Intestine, Open Approach (ICD-10-PCS; principal; 2025-05-12)
PROC: 0D1H0Z4 Bypass Cecum to Cutaneous, Open Approach (ICD-10-PCS; 2025-05-12)
PROC: 0DBN0ZZ Excision of Sigmoid Colon, Open Approach (ICD-10-PCS; 2025-05-12)
PROC: 0DTL0ZZ Resection of Transverse Colon, Open Approach (ICD-10-PCS; 2025-05-12)
PROC: 0DTM0ZZ Resection of Descending Colon, Open Approach (ICD-10-PCS; 2025-05-12)
PROC: 3E033XZ Introduction of Vasopressor into Peripheral Vein, Percutaneous Approach (ICD-10-PCS; 2025-05-12)
PROC: 0D9630Z Drainage of Stomach with Drainage Device, Percutaneous Approach (ICD-10-PCS; 2025-05-12)
PROC: 05HY33Z Insertion of Infusion Device into Upper Vein, Percutaneous Approach (ICD-10-PCS; 2025-05-12)
DX: A41.59 Other Gram-negative sepsis (principal); K55.041 Focal (segmental) acute infarction of large intestine; R18.8 Other ascites; A04.8 Other specified bacterial intestinal infections; K56.41 Fecal impaction; D64.9 Anemia, unspecified; D69.6 Thrombocytopenia, unspecified; I95.9 Hypotension, unspecified; Z88.0 Allergy status to penicillin
CPT/HCPCS: 00840; 36415; 36592; 74177; 76942; 80048; 80053; 80307; 81001; 81003; 83605; 83690; 83735; 84100; 84443; 85025; 85060; 85610; 85730; 87040; 87070; 87075; 87205; 88302; 88304; 88305; 88307; 92523; 94760; 96361; 96365; 96375; 97110; 97116; 97161; 97166; 97530; 97535; 99285-25; A9270; C1751; G0480; J0131; J0744; J0780; J1100; J1171; J1885; J2003; J2185; J2250; J2270; J2371; J2405; J2704; J2795; J3010; J3475; J3490; J7030; J7121; Q9967